=== PATIENT | male | born 1965 | race Caucasian/White ===

== ENCOUNTER 2020-07-13 11:48 | Emergency (ER) | payer MEDICAID ==
[2020-07-13 12:01] VITALS: BP 137/80
--- NOTE | 2020-07-13 13:08 | ED Physician Documentation ---
PD HPI LOWER EXT INJURY - Stated complaint Stated Complaint: LT KNEE INJ - Chief complaint Chief Complaint: Trauma Ext - History obtained from History obtained from: Patient - History of Present Illness PD HPI LOW EXT INJURY LOCATION: Left, Knee Type of injury: Twist Where injury occurred: Work Timing - onset: How many days ago (couple) Timing - duration: Days Timing - details: Abrupt onset, Still present, Waxing and waning Worsened by: Other (walking) Associated symptoms: No: Weakness, Numbness, Swelling Similar symptoms before: Has not had sx before Review of Systems Constitutional: denies: Fever, Chills Nose: denies: Rhinorrhea / runny nose, Congestion Throat: denies: Sore throat Respiratory: denies: Cough Skin: denies: Rash, Lesions PD PAST MEDICAL HISTORY - Past Medical History Past Medical History: No Musculoskeletal: None - Past Surgical History Past Surgical History: No - Present Medications Home Medications: Ambulatory Orders Medication Instructions Recorded Confirmed No Known Home Medications 07/13/20 07/13/20 - Allergies Allergies/Adverse Reactions: Allergies Allergy/AdvReac Type Severity Reaction Status Date / Time No Known Drug Allergies Allergy Verified 07/13/20 11:58 - Social History Does the pt smoke?: No Smoking Status: Never smoker PD ED PE NORMAL - Vitals Vital signs reviewed: Yes - General General: Alert and oriented X 3, No acute distress, Well developed/nourished - Derm Derm: Normal color, Warm and dry - Extremities Extremities: Other (limping gait, with holding left leg straight. knee tender anteriorly without effusion. Cruciate and collateral stress testing without pain nor laxity. No knee effusion. Tender in patellar tendon and proxial tibia ridge insertion point. ) - Neuro Neuro: Alert and oriented X 3, No motor deficit, No sensory deficit Results - Vitals Vitals: Oxygen O2 Source Room air - Rads (name of study) left knee Radiology: Prelim report reviewed, See rad report (no acute process.) PD MEDICAL DECISION MAKING - ED course Complexity details: considered differential (seems like strain of patellar tendon. ), d/w patient Departure - Departure Disposition: 01 Home, Self Care Clinical Impression: Knee injury Qualifiers: Encounter type: initial encounter Laterality: left Qualified Code(s): S89.92XA - Unspecified injury of left lower leg, initial encounter Patellar tendon strain Qualifiers: Encounter type: initial encounter Laterality: left Qualified Code(s): S86.812A - Strain of other muscle(s) and tendon(s) at lower leg level, left leg, initial encounter Condition: Stable Record reviewed to determine appropriate education?: Yes Instructions: ED Meniscal Injury Knee Poss Follow-Up: Rivera Baig MD [Provider Admit Priv/Credential] - Comments: Your x-ray appears normal so no obvious bony cause per se. The majority of knee problems however relate to soft tissue structures such as the cartilage ligame nts and tendons. Your current knee acute pain seems likely to be either a patellar tendon strain or possibly some inflammation of the meniscus (cartilage). These would both be treated with limited range of motion and activity of the knee. Use the hinged knee brace when up and around for the next week or 2 until better. Off work for a few days. Consider some anti-inflammatory such as ibuprofen or naproxen twice daily and add Tylenol to that if needed for pain. Follow-up with your primary care or orthopedics if not improved well over the next week. Forms: Activity restrictions Discharge Date/Time: 07/13/20 15:30
--- NOTE | 2020-07-13 15:01 | XRAY Report ---
PROCEDURE: Knee 4 View LT INDICATIONS: Trauma TECHNIQUE: 5 views of the left knee were acquired. COMPARISON: None. FINDINGS: Bones: No acute fractures or dislocations. No suspicious bony lesions. Soft tissues: No joint effusion. No suspicious soft tissue calcifications. IMPRESSION: No acute osseous abnormality. If there is clinical concern or persistent symptoms, addit ional imaging such as repeat radiographs or advanced imaging (e.g. CT, MRI) may be helpful for furthe r evaluation. Reviewed by: Jun Jj MD on 07/13/2020 3:00 PM PDT Approved by: Jun Jj MD on 07/13/2020 3:00 PM PDT Station ID: [id number]
== END 2020-07-13 15:30 | disposition home or self-care (01) ==
LOC: ED 11:48
DX: S86.812A Strain of other muscle(s) and tendon(s) at lower leg level, left leg, initial encounter (principal); S89.92XA Unspecified injury of left lower leg, initial encounter; X50.1XXA Overexertion from prolonged static or awkward postures, initial encounter; Y99.0 Civilian activity done for income or pay
CPT/HCPCS: 99282; 99283